=== PATIENT | female | born 1965 | race Caucasian/White ===

== ENCOUNTER 2017-01-10 11:16 | Emergency (ER) | payer OTHER ==
[2017-01-10 12:25] LABS: BASOPHIL 0.4 % (0-2); EOSINOPHIL 1.7 % (0-5); HCT 38.2 % (37.0-47.0); HGB 12.8 g/dl (12.5-16.0); LYMPHOCYTE 25.2 % (15-48); MCHC 33.5 g/dL (32.0-36.0); MCV 89.5 fL (78.0-100.0); MONOCYTE 7.7 % (0-12); MPV 10.1 fL (6.0-9.5); PLT 282 K/uL (150-400); RBC 4.27 M/uL (4.20-5.40); RDW 14.5 % (11.5-14.0); WBC 7.1 K/uL (4.0-10.5)
[2017-01-10 12:25] LABS: BILIRUBIN NEGATIVE (NEGATIVE); BLOOD TRACE-INTACT Ery/uL (NEGATIVE); CLARITY CLEAR (CLEAR); COLOR YELLOW (YELLOW); GLUCOSE (U) NORMAL (NORMAL); KETONE (U) NEGATIVE (NEGATIVE); LEUKOCYTES 1+ Leu/uL (NEGATIVE); NITRITE NEGATIVE (NEGATIVE); PROTEIN NEGATIVE (NEGATIVE); SPECIFIC GRAVITY 1.015 (1.001-1.030); UROBILINOGEN 0.2 mg/dL (0.2-1.0); pH 6.5 (5.0-9.0)
[2017-01-10 12:33] LABS: BACTERIA 1+
[2017-01-10 12:43] LABS: TROPONIN T < 0.010 ng/mL
[2017-01-10 12:44] LABS: ALBUMIN 3.8 g/dL (3.5-5.0); BILIRUBIN - TOTAL 0.4 mg/dL (0.1-1.0); CREATININE 0.7 mg/dL (0.5-1.0); GLOBULIN (CALCULATION) 3.3 g/dL (2.2-4.2); MAGNESIUM 1.78 mg/dL (1.40-2.10); PHOSPHORUS 2.1 mg/dL (2.7-4.5); POTASSIUM 2.9 mmol/L (3.5-5.1); TOTAL PROTEIN 7.1 g/dL (6.4-8.3)
[2017-01-10 12:45] LABS: PRO-BNP 348 pg/mL (0-125)
== END 2017-01-10 15:32 | disposition home or self-care (01) ==
LOC: FER 11:16
PROVIDERS: Nurse Practitioner
DX: R07.89 Other chest pain (principal); E87.6 Hypokalemia; I10 Essential (primary) hypertension; E11.9 Type 2 diabetes mellitus without complications; Z85.118 Personal history of other malignant neoplasm of bronchus and lung; Z90.2 Acquired absence of lung [part of]; Z79.899 Other long term (current) drug therapy; Z79.84 Long term (current) use of oral hypoglycemic drugs
CPT/HCPCS: 36415; 71010; 80053; 81001; 82150; 83690; 83735; 83880; 84100; 84484; 85025; 85379; 93005; C9113; J2405; J2765

== ENCOUNTER 2022-03-01 00:27 | Emergency (ER) | payer OTHER ==
[~2022-03-01 00:27] MED LIST: AMARYL2 MG PO; AMITRIPTYLINE 225 MG PO; BEVESPI AEROS10.7 GM INH; CIPRO500 MG PO; CLONIDINE HCL0.1 MG PO; CYCLOBENZAPRINE5 MG PO; ESCITALOPRAM OX10 MG PO; FUROSEMIDE 20MG20 MG PO; IBUPROFEN800 M1 PO; LIOTHYRONINE S25 MCG PO; METFORMIN HCL500 MG PO; NORVASC5 MG PO; PERCOCET 7.5-31 EACH PO; POTASSIUM CHLO10 MEQ PO; PRILOSEC20 MG PO; PROVENTIL2 MG/5 ML PO; SYNTHROID125 MCG PO; SYNTHROID150 MCG PO; TENORMIN50 MG PO; TRELEGY ELLIPT1 EACH INH; VALSARTAN-HCTZ1 EAC3 PO
[2022-03-01] MEDS ORDERED: OXY-IR 5MG5 MG PO (03:26)
== END 2022-03-01 03:52 | disposition home or self-care (01) ==
LOC: FER 00:27
DX: S22.42XA Multiple fractures of ribs, left side, initial encounter for closed fracture (principal); I10 Essential (primary) hypertension; E11.9 Type 2 diabetes mellitus without complications; Z28.310 Unvaccinated for COVID-19; Z79.84 Long term (current) use of oral hypoglycemic drugs; W01.0XXA Fall on same level from slipping, tripping and stumbling without subsequent striking against object, initial encounter
CPT/HCPCS: 70450; 71250; 73030; 94010